=== PATIENT | female | born 1975 | race Asian ===

== ENCOUNTER 2019-05-03 07:25 | Outpatient (CLI) | payer BC ==
--- NOTE | 2019-05-03 08:08 | ULT ---
GALLBLADDER ULTRASOUND: Date: 05/03/19 HISTORY: Right upper quadrant pain. FINDINGS: Real-time imaging of the right upper quadrant shows a normal appearing gallbladder. The common duct i s 4 mm. The liver shows diffuse fatty change, it measures 15 cm in length. Right kidney is normal in size and not obstructed. IMPRESSION: Diffuse fatty change of the liver. POS: TRAVON
== END 2019-05-03 07:26 | disposition home or self-care (01) ==
LOC: SCSULT 07:25
PROVIDERS: ATTEND Physician Assistant Medical
DX: K21.9 Gastro-esophageal reflux disease without esophagitis (principal); R10.13 Epigastric pain; K76.0 Fatty (change of) liver, not elsewhere classified
CPT/HCPCS: 76705

== ENCOUNTER 2020-04-18 00:11 | Inpatient (IN) | payer BC ==
[2020-04-18] MEDS ORDERED: Ondansetron PF 4 MG/2 ML Vial IVP PRN (00:44)
[2020-04-18] MEDS ORDERED: diphenhydrAMINE 25 MG CAP PO PRN (00:44)
[2020-04-18] MEDS ORDERED: Morphine 2 MG/ML SYRINGE SLOW IVP PRN (00:44)
[2020-04-18] MEDS ORDERED: Milk Of Magnesia 30 ML UDCUP PO PRN (00:44)
[2020-04-18] MEDS ORDERED: Acetaminophen 325 MG TAB PO PRN (00:44)
[2020-04-18] MEDS ORDERED: Mag-Al 1200 mg/1200 mg/30 ML UDCUP PO PRN (00:44)
[2020-04-18] MEDS ORDERED: Acetaminophen/Codeine 30-300mg Tablet PO PRN (00:44)
[2020-04-18] MEDS ORDERED: Promethazine 25 MG TAB PO PRN (00:44)
[2020-04-18] MEDS ORDERED: hydrALAZINE 20 MG/ML VIAL SLOW IVP PRN (01:53)
[2020-04-18 02:38] VITALS: BMI 22.8
[2020-04-18] MEDS: Dexamethasone 4 MG TAB PO SCH ×3 (05:11→17:29)
[2020-04-18] MEDS: Sodium Chloride 0.9% 1,000 ML IV SCH ×3 (05:11→22:23)
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
[2020-04-18] MEDS ORDERED: Magnevist 469MG/ML 20 ML VIAL ONE (10:25)
[2020-04-18] MEDS ORDERED: Diazepam 5 MG TAB PO SCH (10:45)
[2020-04-18] MEDS ORDERED: ALPRAZolam 1 MG TAB PO SCH (11:45)
--- NOTE | 2020-04-18 13:43 | MRI ---
MRI OF BRAIN WITHOUT CONTRASTs: 04/18/20 INDICATIONS: Left weakness. Question stroke. FINDINGS: Ventricles have normal size and position. No evidence of restricted diffusion. No evidence of acute i nfarct. No evidence of mass or edema. No white matter abnormality. No evidence of hemorrhage. IMPRESSION: The intracranial internal carotid arteries and proximal cerebral arteries show flow voids. Dural veno us sinuses are patent. Paranasal sinuses are clear. IMPRESSION: Unremarkable MRI of the brain. POS: AGW
--- NOTE | 2020-04-18 15:03 | MRI ---
MRA OF NECK: 04/18/20 Exam performed with and without contrast. HISTORY: Question cervical vertebral carotid injury. Review of source images show symmetric and patent common carotid arteries. There is signal loss in angelita th proximal internal carotid arteries at the bulbs. Findings indicate mild bilateral internal carotid artery stenosis which cannot be adequately assessed. The internal carotid arteries above the bulbs appear patent and symmetric. Vertebral arteries are patent and symmetric. IMPRESSION: Signal loss in both proximal internal carotid arteries at the bulb. This may be artifactual, although mild stenosis cannot be excluded. Suggest correlation with carotid Doppler. If velocity recordings a re within normal range, no further assessment is recommended. POS: NARA
[2020-04-19] MEDS: Dexamethasone 4 MG TAB PO SCH ×5 (00:17→23:58)
[2020-04-19 05:49] LABS: Hemoglobin 10.6 g/dL (12.0-16.0); Mean Corpuscular HGB CONC 33.5 g/dL (32.0-36.0); Mean Corpuscular Volume 89.5 fL (78.0-98.0); Platelet Count 259 thou/uL (130-400); RBC Distribution Width 12.5 % (11.5-14.5); Red Blood Cell (RBC) Count 3.53 mill/uL (4.20-5.40); White Blood Cell (WBC) Count 18.2 thou/uL (4.8-10.8)
[2020-04-19 05:52] LABS: INR-International Normal Ratio 1.1; Prothrombin Time 13.7 sec (12.0-14.7)
[2020-04-19 05:53] LABS: PTT 21.9 sec (22.9-36.1)
--- NOTE | 2020-04-19 07:50 | PRG ---
DATE OF SERVICE: 04/19/2020 This is a neurosurgery progress note. Ms. Parra had a MRA of the cervical vasculature and an MRI of the brain done yesterday because of her face symptoms. These were normal. She has elected to proceed with ACDF today. She has been n.p.o. overnight since midnight. Her paresthesias in her extremities have resolved. She still feels her left arm is weak. No fevers have been recorded since her admission. Blood pressures have been in the 100s to 130s. There is some biceps and triceps weakness on the left. INFORMED CONSENT: I discussed indications, risks, benefits, alternatives, and expected outcomes from surgery. The risks we discussed included, but were not limited to, bleeding, infection, CSF leak, spinal cord injury, paralysis, wheelchair dependence, ventilator dependence, damage to the carotid artery, jugular vein, esophagus, trachea, vocal cords, swallowing mechanism, or cardiopulmonary complications of anesthesia. She understands these risks and wants to proceed. Long-term risks include hardware failure and adjacent segment disease. We will take Ms. Parra to the operating room today. Job ID: [id number]
[2020-04-19] MEDS ORDERED: Midazolam HCl 2 mg/2 ml Vial ONE (09:21)
[2020-04-19] MEDS ORDERED: Sodium Chloride 0.9% 10 ML ONE (09:26)
[2020-04-19] MEDS ORDERED: Fentanyl 100 MCG/2 ML VIAL ONE ×3 (09:26→12:50)
[2020-04-19] MEDS ORDERED: Thrombin 5000 UNITS/5 ML VIAL ONE (09:26)
[2020-04-19] MEDS: Sodium Chloride 0.9% 1,000 ML IV SCH ×2 (09:51→17:54)
[2020-04-19] MEDS ORDERED: Lidocaine 1% PF 5 ML VIAL ONE (11:40)
[2020-04-19] MEDS ORDERED: PROPOFOL 200 MG/20 ML VIAL ONE (11:40)
[2020-04-19] MEDS ORDERED: Ondansetron PF 4 MG/2 ML Vial ONE (11:40)
[2020-04-19] MEDS ORDERED: Glycopyrrolate 0.2 MG/ML 5 ML SYRINGE ONE (11:40)
[2020-04-19] MEDS ORDERED: Dexamethasone 20 MG/5 ML VIAL ONE (11:40)
[2020-04-19] MEDS ORDERED: Rocuronium Bromide 10 MG/ML (10ML VIAL) ONE (11:40)
[2020-04-19] MEDS: CEFAZOLIN 2 GM in Premix Bag 1 BAG IVPB SCH (16:23)
[2020-04-19] MEDS: traMADol HCl 50 MG TAB PO PRN (16:24)
[2020-04-19] MEDS: tiZANidine HCl 4 MG TAB PO PRN (16:25)
--- NOTE | 2020-04-19 17:43 | OP ---
DATE OF PROCEDURE: 04/19/2020 PAINT FORMULATOR: Jasson Longo PA-C PREOPERATIVE INDICATION: Prevent further neurological deterioration. PREOPERATIVE DIAGNOSIS: Cervical myelopathy and cervical radiculopathy from intervertebral disk herniation at C5-C6. POSTOPERATIVE DIAGNOSIS: Cervical myelopathy and cervical radiculopathy from intervertebral disk herniation at C5-C6. PROCEDURES PERFORMED: Anterior cervical diskectomy, intervertebral arthrodesis, placement of intervertebral biomechanical device and anterior cervical plating at C5-C6, local morselized autograft, morselized allograft, operating microscope. PREOPERATIVE MEDICATION: Ancef 2 g IV. DRAIN NUMBER: Zero. DRAIN TYPE: None. DESCRIPTION OF PROCEDURE: The patient was brought to the operating room. General endotracheal anesthesia was induced. The patient was carefully positioned supine with her head supported by a gel-filled donut-shaped headrest. The neck was kept in normal anatomic alignment. A lateral fluoro radiograph was used to plan our incision. The right side of the neck was sterilely prepped and draped. We opened with a 10 blade knife and we controlled bleeding with bipolar cautery. We dissected sharply to the platysma and we cut this muscle in line with our incision. We continued our dissection medial to the sternocleidomastoid and lateral to the trachea and esophagus. We arrived at the prevertebral space. We placed a marker on the spine and took a lateral fluoro radiograph to confirm the level upon which we were operating. We then elevated the longus colli muscles off the anterior surface of C5 and C6 and placed a self-retaining retractor beneath them. Distraction pins were placed at C5 and C6, and we distracted across the intervening interspace. We incised the interspace with a 15 blade knife and removed disk contents using curettes and rongeurs. We brought the operative microscope in the field. Under microscopic magnification and using microsurgical techniques, we removed the remainder of the intervertebral disk. We accessed the ventral epidural space with micro curettes. Using 1 and 2 mm Kerrison rongeurs, we removed posterior osteophyte and posterior longitudinal ligament across the entire interspace. We paid particular attention to the left side of the spinal canal and the left foramen at C5-C6, where the majority of the disk herniation was present. At the completion of our decompression, the dura was no longer pushed away posteriorly. The left foramen was wide open and the spinal canal had been decompressed. We turned our attention to arthrodesis. With curettes, we prepared the endplates for grafting. We measured the height of the interspace with a bone rasp and it was 8 mm in height. An 8 mm PEEK intervertebral graft was brought into the field. This graft was loaded with demineralized bone matrix and morselized autograft from our osteophyte removal was added as well. The bone was previously cleaned of soft tissue attachments, morselized and added into demineralized bone matrix as part of our fusion substrate. The operative microscope was taken out of the field. A 12 mm anterior cervical plate was brought in. We drilled master pilot holes through the plate into the vertebral bodies at C5 and C6. We affixed the plate using 14 mm screws. Fixed angle screws were used at C6 and variable angle screws at C5. AP and lateral fluoro radiographs confirmed adequate positioning of instrumentation. We engaged the locking mechanism over each of the 4 screws. We irrigated with bacitracin irrigation. We closed our wound in anatomical layers and we applied a sterile dressing. This was clean case, no contamination. Job ID: [id number]
[2020-04-20] MEDS: tiZANidine HCl 4 MG TAB PO PRN (00:04)
[2020-04-20] MEDS: CEFAZOLIN 2 GM in Premix Bag 1 BAG IVPB SCH (02:20)
[2020-04-20] MEDS: Sodium Chloride 0.9% 1,000 ML IV SCH (05:29)
[2020-04-20] MEDS: Dexamethasone 4 MG TAB PO SCH (05:29)
[2020-04-20 07:35] VITALS: TEMP 98.2
[2020-04-20] MEDS: traMADol HCl 50 MG TAB PO PRN (08:39)
[2020-04-20] MEDS ORDERED: Meloxicam 15 MG TAB PO SCH (09:00)
[2020-04-20 17:18] VITALS: BP 155/93
--- NOTE | 2020-04-20 18:50 | DIS ---
DATE OF ADMISSION: 04/18/2020 DATE OF DISCHARGE: 04/20/2020 HOSPITAL COURSE: Ms. Parra is a 44-year-old female, who was transferred from the [facility] to [facility] ED in [place] due to a large bulge in her cervical spine at C5-C6 causing myopathy. On April 19, she underwent an ACDF C5-C6. Following surgery, she was transitioned to the [facility]/surg floor where her pain has been well controlled with p.o. medications. She is tolerating a regular diet and voiding appropriately. She is otherwise doing well and ambulating easily in the hallways and feels that she is ready to go home today. PHYSICAL EXAMINATION: Today, she is awake, alert, and in no acute distress. She has free active range of motion of all her extremities. No focal motor weakness. No reflex asymmetry. Her incision is dry, clean, and intact. We will plan to dismiss Ms. Parra home today. I have discussed home care precautions with her. CONDITION ON DISCHARGE: The patient had no emergencies. Condition was stable for discharge. MEDICATIONS: Home going medications were reviewed. FOLLOWUP: Follow up arrangements made by our health care coordinator in the clinic and call to the patient. ACTIVITIES: Restrictions were reviewed in person. Wound care showers are acceptable. The patient should pat the incision dry, but not submerge under the surface of the body of water for 2 months. Job ID: [id number]
== END 2020-04-20 12:53 | disposition home or self-care (01) | DRG 472 ==
LOC: SURG A 02:08
PROVIDERS: ADMIT Neurological Surgery; ATTEND Neurological Surgery
PROC: 0RG10A0 Fusion of Cervical Vertebral Joint with Interbody Fusion Device, Anterior Approach, Anterior Column, Open Approach (ICD-10-PCS; principal; 2020-04-19)
PROC: 0RB30ZZ Excision of Cervical Vertebral Disc, Open Approach (ICD-10-PCS; 2020-04-19)
DX: M50.122 Cervical disc disorder at C5-C6 level with radiculopathy (principal); M50.022 Cervical disc disorder at C5-C6 level with myelopathy; M47.12 Other spondylosis with myelopathy, cervical region; K21.9 Gastro-esophageal reflux disease without esophagitis; J30.2 Other seasonal allergic rhinitis; R20.2 Paresthesia of skin; Z79.82 Long term (current) use of aspirin; Z79.899 Other long term (current) drug therapy
CPT/HCPCS: 36415; 70549; 70551; 85027; 85610; 85730; A9579; C1776; J0690; J1100; J2001; J2250; J2405; J2704; J3010; J3490; J8540